=== PATIENT | male | born 1935 | race Caucasian/White ===

== ENCOUNTER 2020-03-18 13:17 | Outpatient (CLI) | payer MEDICARE, SELFPAY ==
--- NOTE | ~2020-03-18 | US_ITS ---
EXAMINATION: US retroperitoneal comp EXAM DATE: 03/18/2020 13:58 INDICATION: Posttraumatic kidney disease, urinary retention. TECHNIQUE: Multiple grayscale and Doppler images of the kidneys were obtained (by a technologist who performed the scan) and subsequently reviewed. Comparison is made to prior examination from 03/01/2019. FINDINGS: Incidental note made of sizable right pleural effusion. There is severe bilateral renal cor tical thinning. Right kidney: There is normal contour and increased echogenicity. It measures 9.7 x 5.1 x 5.9 centim eters. There are no focal renal lesions identified. There is no hydronephrosis. Left kidney: There is normal contour and increased echogenicity. It measures 10.0 x 5.9 x 4.7 centim eters. There are no focal renal lesions identified. There is no hydronephrosis. Severe diffuse bladder wall trabeculation, thickening, most likely chronic cystitis. Prevoid bladder volume 67 mL, postvoid 26 mL. IMPRESSION: 1. Echogenic kidneys, medical renal disease, with severe bilateral renal cortical thinning. 2. Severe bladder wall trabeculation, thickening, most likely chronic cystitis. 3. Small post void residual. Reviewed, dictated and finalized at location A. IMPRESSION: 1. Echogenic kidneys, medical renal disease, with severe bilateral renal corti clemente thinning. 2. Severe bladder wall trabeculation, thickening, most likely chronic cystitis . 3. Small post void residual.
== END 2020-03-18 13:18 | disposition home or self-care (01) ==
LOC: CHSIMG 13:19
PROVIDERS: PCP Internal Medicine; Visit Provider Internal Medicine
DX: N18.4 Chronic kidney disease, stage 4 (severe) (principal); R33.9 Retention of urine, unspecified
CPT/HCPCS: 76770

== ENCOUNTER 2020-03-26 12:59 | Outpatient (CLI) | payer MEDICARE, SELFPAY ==
[2020-03-26] MEDS: DARBEPOETIN ALFA 60 MCG/0.3 ML SYRINGE SUB-Q (13:33)
== END 2020-03-26 13:00 | disposition home or self-care (01) ==
LOC: CHSTREATRM 13:01
PROVIDERS: PCP Internal Medicine; Visit Provider Internal Medicine
DX: N18.4 Chronic kidney disease, stage 4 (severe) (principal); D63.1 Anemia in chronic kidney disease
CPT/HCPCS: 96372; J0881

== ENCOUNTER 2020-04-10 08:40 | Outpatient (CLI) | payer MEDICARE, SELFPAY ==
[2020-04-10 08:52] LABS: Basophils Absolute Auto 0.09 K/mm3 (0.00-0.10); Basophils Percent Auto 1.7 % (0.0-1.0); Eosinophils Absolute Auto 0.47 K/mm3 (0.02-0.50); Eosinophils Percent Auto 8.8 % (1.0-6.0); Hematocrit 23.9 % (37.0-46.0); Hemoglobin 7.4 g/dL (12.4-15.3); Immature Granulocyte Absolute 0.01 K/mm3 (0.00-0.00); Immature Granulocyte Percent A 0.2 % (0.0-0.0); Lymphocytes Absolute Auto 2.09 K/mm3 (1.10-4.50); Lymphocytes Percent Auto 38.9 % (18.0-42.0); Mean Corpuscular Hemoglobin 31.4 pg (27.0-31.0); Mean Corpuscular Volume 101.3 fL (78.0-102.0); Monocytes Absolute Auto 0.59 K/mm3 (0.10-0.90); Neutrophils Absolute Auto 2.1 K/mm3 (1.7-7.2); Neutrophils Percent Auto 39.4 % (50.0-70.0); Platelet Count Result 202 K/mm3 (150-420); Red Blood Count 2.36 M/mm3 (4.70-6.10); Red Cell Distribution Width 16.5 % (11.6-14.4); White Blood Count 5.4 K/mm3 (4.8-10.8)
[2020-04-10 09:38] LABS: Anion Gap 7 mmol/L (8-16); Blood Urea Nitrogen 46 mg/dL (7-18); Calcium 8.2 mg/dL (8.5-10.1); Carbon Dioxide 25 mmol/L (21-32); Chloride 109 mmol/L (98-108); Estimated Glomerular Filt Rate 18; Glucose 97 mg/dL (70-99); Osmolality Calculated 303 mOsm/kg (285-295); Potassium 5.1 mmol/L (3.5-5.1); Sodium 141 mmol/L (136-145)
== END 2020-04-10 08:41 | disposition home or self-care (01) ==
LOC: CHSLAB 08:42
PROVIDERS: PCP Internal Medicine; Visit Provider Internal Medicine
DX: I50.9 Heart failure, unspecified (principal); N18.4 Chronic kidney disease, stage 4 (severe); D64.9 Anemia, unspecified
CPT/HCPCS: 36415; 80048; 85025

== ENCOUNTER 2020-04-20 08:34 | Outpatient (CLI) | payer MEDICARE, SELFPAY ==
[2020-04-20] MEDS: DARBEPOETIN ALFA 60 MCG/ML VIAL SUB-Q (09:07)
== END 2020-04-20 08:35 | disposition home or self-care (01) ==
PROVIDERS: PCP Internal Medicine; Visit Provider Internal Medicine
DX: N18.4 Chronic kidney disease, stage 4 (severe) (principal); D63.1 Anemia in chronic kidney disease
CPT/HCPCS: 96372; J0881

== ENCOUNTER 2020-05-07 10:11 | Outpatient (CLI) | payer MEDICARE, SELFPAY ==
[2020-05-07 10:21] LABS: Hematocrit 24.9 % (37.0-46.0); Hemoglobin 7.8 g/dL (12.4-15.3)
[2020-05-07 11:25] VITALS: BP 160/86; PULSE 56; RESP 16; TEMP 36.2; O2SAT 97
[2020-05-07 11:40] VITALS: BP 155/72; PULSE 78; RESP 18; TEMP 36.4; O2SAT 98
[2020-05-07 12:40] VITALS: BP 143/54; PULSE 64; RESP 18; TEMP 36.5; O2SAT 95
[2020-05-07 13:40] VITALS: BP 152/72; PULSE 62; RESP 18; TEMP 36.2; O2SAT 98
[2020-05-07 14:50] VITALS: BP 151/65; PULSE 63; RESP 18; TEMP 36.1; O2SAT 94
== END 2020-05-07 10:12 | disposition home or self-care (01) ==
PROVIDERS: PCP Internal Medicine; Visit Provider Internal Medicine
DX: D64.9 Anemia, unspecified (principal)
CPT/HCPCS: 36415; 36430; 85014; 85018; 86850; 86900; 86901; 86920; J7050; P9016

== ENCOUNTER 2020-05-08 08:34 | Outpatient (CLI) | payer MEDICARE, SELFPAY ==
[2020-05-08 08:50] LABS: Hemoglobin 8.5 g/dL (12.4-15.3)
[2020-05-08 09:39] LABS: Anion Gap 7 mmol/L (8-16); Blood Urea Nitrogen 38 mg/dL (7-18); Calcium 7.7 mg/dL (8.5-10.1); Carbon Dioxide 27 mmol/L (21-32); Chloride 110 mmol/L (98-108); Estimated Glomerular Filt Rate 19; Glucose 93 mg/dL (70-99); Osmolality Calculated 307 mOsm/kg (285-295); Sodium 144 mmol/L (136-145)
== END 2020-05-08 08:35 | disposition home or self-care (01) ==
LOC: CHSLAB 08:35
PROVIDERS: PCP Internal Medicine; Visit Provider Internal Medicine
DX: D64.9 Anemia, unspecified (principal); N18.3 Chronic kidney disease, stage 3 (moderate)
CPT/HCPCS: 36415; 80048; 85014; 85018